=== PATIENT | male | born 1970 | race Caucasian/White ===

== ENCOUNTER → 2017-11-24 15:34 | Outpatient (CLI) | payer BC, SELFPAY ==
--- NOTE | 2017-11-24 15:44 | XR_ITS ---
XR chest 2V INDICATION: Persistent cough COMPARISON: None FINDINGS: The cardiovascular structures are unremarkable. No mediastinal shift or hilar mass is evident. The lungs are well expanded and clear bilaterally. The costophrenic sulci are sharp. No significant bony anomalies are apparent. IMPRESSION: Negative chest.
== END ==
PROVIDERS: PCP Internal Medicine Adolescent Medicine; Visit Provider Internal Medicine Adolescent Medicine
DX: R05 Cough (principal)
CPT/HCPCS: 71046

== ENCOUNTER → 2017-11-27 07:03 | Outpatient (CLI) | payer BC, SELFPAY ==
[2017-11-27 14:02] LABS: Alanine Aminotransferase 23 U/L (12-78); Albumin Level 3.5 gm/dL (3.4-5.0); Albumin/Globulin Ratio 1.1 (1.1-1.8); Alkaline Phosphatase 141 U/L (46-116); Anion Gap 13.4 mEq/L (5-15); Aspartate Amino Transferase 11 U/L (15-37); Bilirubin,Total 0.2 mg/dL (0.2-1.0); Blood Urea Nitrogen 12 mg/dL (7-18); Calcium 8.6 mg/dL (8.5-10.1); Carbon Dioxide 27 mmol/L (21.0-32.0); Chloride 106 mmol/L (98-107); Chol/HDL Ratio 9.5 (1-3.5); Cholesterol 227 mg/dL (140-200); Creatinine,Serum 0.78 mg/dL (0.70-1.30); Estimated Glomerular Filt Rate 106 ml/min (>60); GFR (African American) 128 ML/MIN (>60); Globulin 3.2 gm/dl (1.3-3.2); Glucose 101 mg/dL (74-106); HDL Cholesterol 24 mg/dL (27-67); LDL Cholesterol 164 mg/dL (0-130); Potassium 4.4 mmoL/L (3.5-5.1); Sodium 142 mmol/L (136-145); Total Protein,Serum 6.7 gm/dL (6.4-8.2); Triglycerides 193 mg/dL (30-200); VLDL Cholesterol 39 mg/dL (0-40)
== END ==
PROVIDERS: Visit Provider Nurse Practitioner Family
DX: Z00.00 Encounter for general adult medical examination without abnormal findings (principal)
CPT/HCPCS: 36415; 80053; 80061

== ENCOUNTER 2017-12-12 09:49 | Day surgery (SDC) | payer BC, SELFPAY ==
[2017-12-11 10:32] VITALS: BMI 70.7
[2017-12-12] VITALS (13 sets, daily range): BP systolic 95–119; BP diastolic 60–73; PULSE 60–68; RESP 12–20; TEMP 36.2–36.7; O2SAT 94–99
--- NOTE | 2017-12-12 11:33 | HMH.SCOPE ---
- Procedure: Date: 12/12/17 Procedure Performed:: Total colonoscopy to terminal ileum with biopsies and polypectomy Indications:: Patient is a 47-year-old smoker. He was undergoing routine evaluation for life insurance policy and blood work included CEA level which was elevated. He was therefore referred for consultation for colonoscopy to the etiology. Performing Provider:: Dieudonne Lei MD Referring Provider:: Zack Bartholomew MD Sedation:: Versed 11 million times, fentanyl 200 mcg. Procedure:: After adequate intravenous sedation variable stiffness Olympus colonoscope was inserted via the anus and advanced to the cecum with minimal difficulty. Valve and appendiceal orifice were clearly identified. Colonoscope was advanced into the terminal ileum. There are a couple punctate ulcerations within the terminal ileum and biopsies were obtained. Colonoscope was withdrawn through the colon with careful surveillance. He had some slightly atypical appearing mucosa and biopsies were obtained throughout rule out microscopic colitis. There were some hyperplastic appearing polyps within the rectum and several of these were removed using cold biopsy forceps. Colonoscope was withdrawn. Findings:: Hyperplastic rectal polyps Punctate ulceration in the terminal ileum Recommendations:: No colonic source for elevated CEA. Follow-up for results of biopsies. If rectal polyps are hyperplastic should not require repeat colonoscopy for at least 5 years. Complications:: None Estimated blood obtained (mL): 1
== END 2017-12-12 12:04 | disposition home or self-care (01) ==
LOC: OUTP 09:50
PROVIDERS: Family Provider Internal Medicine Adolescent Medicine; PCP Internal Medicine Adolescent Medicine; Visit Provider Surgery
PROC: 0DJD8ZZ Inspection of Lower Intestinal Tract, Via Natural or Artificial Opening Endoscopic (ICD-10-PCS; CPT 45380; principal; 2017-12-12 10:30)
DX: Z12.11 Encounter for screening for malignant neoplasm of colon (principal); Z02.89 Encounter for other administrative examinations; K63.5 Polyp of colon; K63.3 Ulcer of intestine
CPT/HCPCS: 45380; 99152; 99153

== ENCOUNTER → 2018-12-11 07:18 | Outpatient (CLI) | payer BC, SELFPAY ==
[2018-12-11 13:36] LABS: Basophils # 0.1 K/mm3 (0-0.2); Basophils % 0.6 % (0.1-2.0); Eosinophils # 0.3 K/mm3 (0.0-0.4); Eosinophils % 2.2 % (0.1-12.0); Hematocrit 45.3 % (42.0-52.0); Hemoglobin 14.7 g/dL (14.1-18.0); Lymphocytes # 4.3 K/mm3 (0.7-4.5); Lymphocytes % 35.9 % (10-50); Mean Corpuscular HGB Conc 32.4 g/dL (31.8-35.4); Mean Corpuscular Hemoglobin 29.5 pg (27.0-31.2); Mean Corpuscular Volume 91.1 fl (80-94); Monocytes # 0.7 K/mm3 (0.1-1.0); Monocytes % 5.5 % (1.7-9.3); Neutrophils # 6.8 K/mm3 (1.8-7.8); Neutrophils % 55.7 % (37.0-80.0); Platelet Count 330 K/mm3 (142-424); Red Blood Count 4.97 M/mm3 (4.60-6.20); Red Cell Distribution Width 13.9 % (11.5-17.5); White Blood Count 12.1 K/mm3 (4.8-10.8)
[2018-12-11 13:48] LABS: Alanine Aminotransferase 33 U/L (12-78); Albumin Level 3.6 gm/dL (3.4-5.0); Albumin/Globulin Ratio 1.2 (1.1-1.8); Alkaline Phosphatase 138 U/L (46-116); Aspartate Amino Transferase 14 U/L (15-37); Bilirubin,Total 0.3 mg/dL (0.2-1.0); Blood Urea Nitrogen 10 mg/dL (7-18); Calcium 8.8 mg/dL (8.5-10.1); Carbon Dioxide 26 mmol/L (21.0-32.0); Chloride 107 mmol/L (98-107); Chol/HDL Ratio 5.4 (1-3.5); Cholesterol 168 mg/dL (140-200); Creatinine,Serum 0.88 mg/dL (0.70-1.30); Estimated Glomerular Filt Rate 92 ml/min (>60); GFR (African American) 111 ML/MIN (>60); Globulin 3.1 gm/dl (1.3-3.2); Glucose 104 mg/dL (74-106); HDL Cholesterol 31 mg/dL (27-67); LDL Cholesterol 114 mg/dL (0-130); Sodium 144 mmol/L (136-145); Total Protein,Serum 6.7 gm/dL (6.4-8.2); Triglycerides 116 mg/dL (30-200); VLDL Cholesterol 23 mg/dL (0-40)
== END ==
PROVIDERS: PCP Internal Medicine Adolescent Medicine; Visit Provider Emergency Medicine
DX: R00.1 Bradycardia, unspecified (principal); R06.02 Shortness of breath; R06.83 Snoring
CPT/HCPCS: 36415; 80053; 80061; 83036; 85025

== ENCOUNTER → 2019-12-24 12:58 | Outpatient (CLI) | payer BC, SELFPAY ==
--- NOTE | 2019-12-24 13:01 | XR_ITS ---
PROCEDURE: XR CHEST CHP 1V CLINICAL HISTORY: COUGH COMPARISON: CXR2V XR chest 2V from 11/24/2017 FINDINGS: The cardiomediastinal silhouette and pulmonary vascularity are within normal limits. There is patchy diffuse bilateral alveolar opacification with some sparing of the lung bases.. No effusions. No acute bony abnormalities. IMPRESSION: Mild diffuse bilateral airspace disease consistent with pneumonia which could be either viral or bacterial. Dictated by: Michele Castaneda MD 12/24/2019 13:34 Electronically signed by Michele Castaneda MD in [place] 12/24/2019 13:35
[2019-12-24 13:27] LABS: Adenovirus,PCR Not Detected (NotDetected); Bordetella Pertussis Not Detected (NotDetected); Chlamydophila Pneumoniae, PCR Not Detected (NotDetected); Coronavirus 229E Not Detected (NotDetected); Coronavirus NL63 Not Detected (NotDetected); Coronavirus OC43 Not Detected (NotDetected); Coronovirus HKU1,PCR Not Detected (NotDetected); Human Metapneumovirus Not Detected (NotDetected); Influenza A, PCR Not Detected (NotDetected); Influenza AH1, 2009 Not Detected (NotDetected); Influenza AH1, PCR Not Detected (NotDetected); Influenza AH3,PCR Not Detected (NotDetected); Influenza B, PCR Not Detected (NotDetected); Mycoplasma Pneumoniae, PCR Not Detected (NotDetected); Parainfluenza 1, PCR Not Detected (NotDetected); Parainfluenza 2, PCR Not Detected (NotDetected); Parainfluenza 3, PCR Not Detected (NotDetected); Parainfluenza 4, PCR Not Detected (NotDetected); Respiratory Syncytial Virus Not Detected (NotDetected); Rhinovirus/Enterovirus Not Detected (NotDetected)
[2019-12-24 13:38] LABS: Basophils # 0.1 K/mm3 (0-0.2); Basophils % 0.5 % (0.1-2.0); Eosinophils # 0.4 K/mm3 (0.0-0.4); Eosinophils % 2.7 % (0.1-12.0); Hematocrit 40.4 % (42.0-52.0); Lymphocytes # 3.6 K/mm3 (0.7-4.5); Lymphocytes % 27.9 % (10-50); Mean Corpuscular HGB Conc 32.2 g/dL (31.8-35.4); Mean Corpuscular Hemoglobin 28.1 pg (27.0-31.2); Mean Corpuscular Volume 87.1 fl (80-94); Mean Platelet Volume 7.3 fl (7.4-10.4); Monocytes # 0.5 K/mm3 (0.1-1.0); Monocytes % 4.2 % (1.7-9.3); Neutrophils # 8.4 K/mm3 (1.8-7.8); Neutrophils % 64.8 % (37.0-80.0); Platelet Count 514 K/mm3 (142-424); Red Blood Count 4.64 M/mm3 (4.60-6.20); Red Cell Distribution Width 13.4 % (11.5-17.5); White Blood Count 12.9 K/mm3 (4.8-10.8)
[2019-12-24 13:55] LABS: Alanine Aminotransferase 28 U/L (12-78); Albumin Level 4.2 g/dl (3.5-5.0); Albumin/Globulin Ratio 1.2 (1.1-1.8); Alkaline Phosphatase 109 U/L (38-126); Anion Gap 12.7 mEq/L (5-15); Aspartate Amino Transferase 32 U/L (17-59); Blood Urea Nitrogen 12 mg/dl (9-20); Calcium 9.5 mg/dl (8.4-10.2); Carbon Dioxide 28 mmol/L (22.0-30.0); Chloride 102 mmol/L (98-107); Estimated Glomerular Filt Rate 119 ml/min (>60); GFR (African American) 144 ML/MIN (>60); Globulin 3.4 g/dL (1.3-3.2); Glucose 111 mg/dl (74-100); Potassium 3.7 mmoL/L (3.5-5.1); Sodium 139 mmol/L (136-145); Total Protein,Serum 7.6 g/dl (6.3-8.2)
[2019-12-24 13:56] LABS: Bilirubin,Total 0.1 mg/dl (0.2-1.3)
[2019-12-26 09:00] LABS: Covid-19 Nasal PCR Sendout Lex NOT DETECTED
--- NOTE | 2019-12-26 11:27 | PC.NURSE ---
0900-pt and provider notified of negative COVID 19 results.
== END ==
PROVIDERS: Visit Provider Internal Medicine Adolescent Medicine
DX: R05 Cough (principal); R53.83 Other fatigue; R53.81 Other malaise
CPT/HCPCS: 36415; 71010; 80053; 85025; 87486; 87581; 87633; 87798

== ENCOUNTER → 2020-01-03 12:43 | Outpatient (CLI) | payer BC, SELFPAY ==
--- NOTE | 2020-01-03 12:54 | CT_ITS ---
PROCEDURE: CT CHEST WO CON CLINICAL INDICATION: PNEUMONIA Cough and shortness COMPARISON: CXR2V XR chest 2V from 11/24/2017 XR CHEST CHP 1V from 12/24/2019 TECHNIQUE: Axial images obtained with sagittal and coronal reformats. All CT scans at the facility use one or more dose reduction, viz: automated exposure control, ma/kV adjustment per patient size (including targeted exams where dose is matched to indication, i.e. head), or iterative reconstruction technique. FINDINGS: HEART AND MEDIASTINAL STRUCTURES: Scattered small nodes are present in the mediastinum. Partially calcified nodes are present as well. There are coronary artery calcifications. No mediastinal or hilar mass. LUNGS AND PLEURAL SPACES: There are numerous in diffuse bilateral reticulonodular opacities some of which are coalescent in the right upper lobe measuring up to 10 mm. Summary slight. These are present in both upper and lower lobes however, there is upper lobe predominance. The pattern of the nodular distribution is random. No pleural nodules are evident. There are a few small cavitating nodules. No pleural effusions apparent. BONY STRUCTURES: No acute finding UPPER ABDOMEN: Small gallstones are noted ADDITIONAL FINDINGS: No other significant abnormalities. IMPRESSION: 1. Diffuse ill-defined reticular nodular opacities with upper lobe predominance as described above random in distribution. Differential diagnosis would include infection such as bacterial or fungal as well as miliary tuberculosis, miliary fungal infection. Hematogenous spread of metastasis is also consideration. Sarcoidosis or Langerhans cell histiocytosis could also cause this appearance. Pulmonary consult suggested. 2. Cholelithiasis Dictated by: Michele Castaneda MD 01/03/2020 17:38 Electronically signed by Michele Castaneda MD in [place] 01/03/2020 17:38
== END ==
PROVIDERS: PCP Internal Medicine Adolescent Medicine; Visit Provider Internal Medicine Adolescent Medicine
DX: J18.9 Pneumonia, unspecified organism (principal)
CPT/HCPCS: 71250; 94060; 94726; 94729

== ENCOUNTER → 2020-05-01 08:29 | Outpatient (CLI) | payer BC, SELFPAY ==
--- NOTE | 2020-05-01 08:34 | CA_ITS ---
APPROVED REPORT EXAM: Comprehensive 2D, Doppler, and color-flow Echocardiogram Career Development Associate: Theresa Enamorado RT(R) Ht: 5 ft 11 in Wt: 220lbs BSA: 2.20 BP: 140/80 mmHg Indications: SOA SMOKER 2D Dimensions LVOT 1.77 cm (M/F) 1.5-2.5 M-Mode Dimensions RVDd 2.17 cm (0.9-2.6) LVDd 5.83 cm (3.5-5.7) LVDs 4.10 cm (3.5-5.7) IVSd 0.76 cm (0.6-1.1) PWd 0.97 cm (0.6-1.1) EF (Teich) 56.00% FS 29.70% EDV (Teich) 168.50 mL ESV (Teich) 74.20 mL LV Diastology E/A Ratio 1.45 Mitral Valve MV A Velocity 51.00 (40-130 cm/s) Left Ventricle Left atrium is normal size, left ventricle is normal size, there is no concentric left ventricular hypertrophy, visually estimated ejection fraction of 55% with no regional wall motion abnormality. Right Ventricle Right atrium and right ventricle are normal size and contractility. Aortic Valve Aortic valve is minimally thickened and fibrosed. There is no aortic stenosis or aortic insufficiency. Mitral Valve Mitral valve is grossly normal, there is mild mitral regurgitation. Tricuspid Valve Tricuspid valve is grossly normal, there is mild tricuspid regurgitation. Tricuspid regurgitation jet velocity is inadequate for calculation of the right ventricular systolic pressure. Pulmonic Valve Pulmonic valve is poorly visualized. Great Vessels Aortic root is normal size. Pericardium No significant pericardial effusion noted. Conclusion 1. Normal left ventricular size, preserved left ventricular systolic function, visually estimated ejection fraction 55% with no regional wall motion abnormality, diastolic parameters are within normal range. 2. Mild mitral and tricuspid regurgitation. 3. No significant pericardial effusion noted. Electronically signed by : Shankar Pina, 05/01/2020 14:00:34
== END ==
PROVIDERS: PCP Internal Medicine Adolescent Medicine; Visit Provider Internal Medicine Adolescent Medicine
DX: R06.02 Shortness of breath (principal)
CPT/HCPCS: 93306

== ENCOUNTER → 2021-01-19 18:33 | Outpatient (CLI) | payer BC, SELFPAY ==
[2021-01-19 19:01] LABS: Basophils # 0.1 K/mm3 (0-0.2); Basophils % 0.5 % (0.1-2.0); Eosinophils # 0.3 K/mm3 (0.0-0.4); Hematocrit 43.4 % (42.0-52.0); Hemoglobin 14.5 g/dL (14.1-18.0); Lymphocytes # 4.9 K/mm3 (0.7-4.5); Lymphocytes % 34.4 % (10-50); Mean Corpuscular HGB Conc 33.4 g/dL (31.8-35.4); Mean Corpuscular Hemoglobin 29.9 pg (27.0-31.2); Mean Corpuscular Volume 89.8 fl (80-94); Mean Platelet Volume 8.7 fl (7.4-10.4); Monocytes # 0.8 K/mm3 (0.1-1.0); Monocytes % 5.3 % (1.7-9.3); Neutrophils # 8.3 K/mm3 (1.8-7.8); Neutrophils % 57.8 % (37.0-80.0); Platelet Count 372 K/mm3 (142-424); Red Blood Count 4.83 M/mm3 (4.60-6.20); Red Cell Distribution Width 14.4 % (11.5-17.5); White Blood Count 14.3 K/mm3 (4.8-10.8)
[2021-01-19 19:05] LABS: Alanine Aminotransferase 21 U/L (12-78); Albumin Level 4.5 g/dl (3.5-5.0); Albumin/Globulin Ratio 1.8 (1.1-1.8); Alkaline Phosphatase 135 U/L (38-126); Anion Gap 12.2 mEq/L (5-15); Aspartate Amino Transferase 29 U/L (17-59); Bilirubin,Total 0.2 mg/dl (0.2-1.3); Blood Urea Nitrogen 13 mg/dl (9-20); Calcium 9.5 mg/dl (8.4-10.2); Carbon Dioxide 26 mmol/L (22.0-30.0); Chloride 106 mmol/L (98-107); Estimated Glomerular Filt Rate 118 ml/min (>60); GFR (African American) 143 ML/MIN (>60); Globulin 2.5 g/dL (1.3-3.2); Glucose 95 mg/dl (74-100); Potassium 4.2 mmoL/L (3.5-5.1); Sodium 140 mmol/L (136-145)
[2021-01-19 19:23] LABS: Hemoglobin A1C 5.8 % (4.0-6.0)
[2021-01-19 19:36] LABS: Prostate Specific Ag Screen 3.1 ng/ml (0.0-4.0)
[2021-01-19 19:54] LABS: Vitamin B12 576 pg/mL (239-931)
[2021-01-19 20:30] LABS: 25-OH Vitamin D, Total 44.5 ng/mL (30-100)
[2021-01-19 20:36] LABS: Free Thyroxine Index 2.5 ug/dL (5.93-13.13); T4 (Thyroxine) 7.7 ug/dl (5.53-11.0); Triiodothryronine (T3) Uptake 32 % (23.5-40.5)
[2021-01-19 20:50] LABS: Thyroid Stimulating Hormone 1.17 uIU/mL (0.465-4.68)
[2021-01-21 16:12] LABS: IgG, Subclass 1 496 mg/dL (248-810); IgG, Subclass 2 173 mg/dL (130-555); IgG, Subclass 3 53 mg/dL (15-102)
[2021-01-21 20:56] LABS: IgG, Subclass 4 55 mg/dL (2-96)
== END ==
PROVIDERS: Visit Provider Internal Medicine Adolescent Medicine
DX: R35.8 Other polyuria (principal); L29.9 Pruritus, unspecified; Z79.899 Other long term (current) drug therapy; Z12.5 Encounter for screening for malignant neoplasm of prostate
CPT/HCPCS: 80053; 82306; 82607; 82787; 83036; 84436; 84443; 84479; 85025; G0103

== ENCOUNTER 2023-10-02 16:33 | Outpatient (CLI) | payer BC, SELFPAY ==
[2023-10-02 16:46] LABS: Basophils # 0.1 K/mm3 (0-0.2); Basophils % 0.5 % (0.1-2.0); Eosinophils # 0.2 K/mm3 (0.0-0.4); Eosinophils % 1.5 % (0.1-12.0); Hematocrit 47.2 % (42.0-52.0); Hemoglobin 15.8 g/dL (14.1-18.0); Lymphocytes # 3.9 K/mm3 (0.7-4.5); Lymphocytes % 36.7 % (10-50); Mean Corpuscular HGB Conc 33.4 g/dL (31.8-35.4); Mean Corpuscular Hemoglobin 30.9 pg (27.0-31.2); Mean Corpuscular Volume 92.4 fl (80-94); Mean Platelet Volume 9.4 fl (7.4-10.4); Monocytes # 0.7 K/mm3 (0.1-1.0); Monocytes % 6.5 % (1.7-9.3); Neutrophils # 5.9 K/mm3 (1.8-7.8); Neutrophils % 54.8 % (37.0-80.0); Platelet Count 317 K/mm3 (142-424); Red Blood Count 5.11 M/mm3 (4.60-6.20); Red Cell Distribution Width 14.4 % (11.5-17.5); White Blood Count 10.7 K/mm3 (4.8-10.8)
[2023-10-02 17:28] LABS: Alanine Aminotransferase 20 U/L (12-78); Albumin/Globulin Ratio 1.4 (1.1-1.8); Alkaline Phosphatase 140 U/L (38-126); Anion Gap 11.7 mEq/L (5-15); Aspartate Amino Transferase 22 U/L (17-59); Bilirubin,Total 0.4 mg/dl (0.2-1.3); Blood Urea Nitrogen 12 mg/dl (9-20); Calcium 8.8 mg/dl (8.4-10.2); Carbon Dioxide 26 mmol/L (22.0-30.0); Chloride 106 mmol/L (98-107); Chol/HDL Ratio 9.6 (1-3.5); Cholesterol 259 mg/dl (140-200); Estimated Glomerular Filt Rate 117 ml/min (>60); GFR (African American) 142 ML/MIN (>60); Globulin 2.9 g/dL (1.3-3.2); Glucose 98 mg/dl (74-100); HDL Cholesterol 27 mg/dl (40-60); Potassium 4.7 mmoL/L (3.5-5.1); Sodium 139 mmol/L (136-145); Total Protein,Serum 6.9 g/dl (6.3-8.2); Triglycerides 229 mg/dl (30-150); VLDL Cholesterol 46 mg/dL (0-40)
== END 2023-10-02 23:59 ==
LOC: LAB.DROPOF 16:34
PROVIDERS: PCP Family Medicine; Visit Provider Family Medicine
DX: E78.5 Hyperlipidemia, unspecified (principal)
CPT/HCPCS: 80053; 80061; 85025

== ENCOUNTER 2025-05-17 09:34 | Outpatient (CLI) | payer BC, OTHER, SELFPAY ==
--- OUTSIDE RECORDS SUMMARY | 2022-02-17 11:58 | XMS_ITS | Encounter Summary ---
[facility] Address [address] [place] [address] Care Team Providers Care Supervisor Pipe Manufacture Name Role Phone Zack Bartholomew MD Primary Care Provider [phone] Encounter Details Date Type Department Care Team (Late st Contact Info) Description 02/17/2022 11:58 AM EDT Hospital Encounter [facility] [address] [place] [address] [phone] Social History Tobacco Use Types Packs/Day Years Used Date Smoking Tobacco: Every Day Cigarettes 1 35 Smokeless Tobacco: Never Alcohol Use Standard Drinks/Week Comments Never 0 (1 standard drink = 0.6 oz pur e alcohol) AUDIT-C Answer Date Recorded Q1: How often do you have a drink containing alc ohol? Never 08/14/2020 Average Number of Drinks Not on file 020 Frequency of Binge Drinking Not on file 12/2019 Sex and Gender Information Value Date Recorded Sex Assigned at Not on file Legal Sex Male 4:19 PM EST Gender Identity Not on file Sexual Orientation Not on file Occupation Industry Job Start Date Job End Date self employed Not on file Not on file Not on file documented as of this encounter Plan of Treatment Not on file documented as of this encounter Procedures Procedure Name Priority Date/Time Associated Diagnosis Comments XR CHEST PA AND LATERAL Routine 02/17/2022 11:58 AM EDT Adult [facility] (pulmonary Langerhans cell histiocytosis) documented in this encounter Results * XR Chest PA & Lateral (02/17/2022 11:58 AM EDT) Anatomical Region Laterality Modality Body, Chest N/A Radiographic Kierra ging Narrative 02/17/2022 12:19 PM EDT PA and lateral chest x-rays obtained Cardiac silhouette is within normal limits of size CT ratio is 13 x 31 Prominent interstitial pattern noted throughout both lung cantor without consolidation or effusions Overall, probably improved and less nodular than prior chest x-ray from March 17, 2020 Frank Mark MD IMG DIAGNOSTIC IMAGING ORDERABLES Final Result documented in this encounter Visit Diagnoses Not on filedocumented in this encounter Care Teams Supervisor Pipe Manufacture Relationship Specialty Start Date End Date Zack Bartholomew MD [facility] [address] [phone] PCP - General Adolescent Medicine 08/20/16 documented as of this encounter
--- OUTSIDE RECORDS SUMMARY | 2024-12-14 17:30 | XMS_ITS ---
Author Organization [facility] Address [address] [place] [address] [place] [address] Care Team Providers Care Corridor Redevelopment Manager Name Role Phone Zack Bartholomew Primary Care Provider Migration, Provider Unavailable Unavailable [facility]AS[facility]ISIT [facility] Encounter Medications Medication SIG (Take, Route, Frequency, Duration) Notes Start Date End Date Status LOTRISONE 0.05%-1% 1 ARIEL APPLIED TOPICALLY 2 TIMES A DAY; Duration: 14 DAY(S) *Please review for potential replacement for e-prescription and drug interaction check* Active Antivert 50 MG 1 TAB(S) ORALLY 3 TIMES A DAY NEEDED; Duration: 30 DAYS *Please review and pick correct strength-formulatio n from [facility] options. If intended option is not shown, discontinue and re-order from Quick Search* 11/22/2022 Active SPIRIVA RESPIMAT 60 ACT 2.5 MCG/INH 2 PUFF(S) INHALED ONCE A DAY *Please review for potential replacement for e-prescription and drug interaction check* 09/21/2021 Active Rosuvastatin Calcium 10 MG 1 tab(s) orally once a day; Duration: 90 day(s) 09/13/2022 Active PROAIR HFA CFC FREE 90 MCG/INH 2 PUFF(S) INHALED 4 TIMES A DAY PRN WHEEZING; Duration: 30 DAY(S) *Please review for potential replacement for e-prescription and drug interaction check* 09/14/2021 Active Breo Ellipta 100 MCG-25 MCG/INH 1 PUFF(S) INHALED ONCE A DAY; Duration: 30 DAY(S) *Please review and pick correct strength-formulatio n from Medispan options. If intended option is not shown, discontinue and re-order from Quick Search* 09/14/2021 Active Tamsulosin HCl 0.4 MG 1 cap(s) orally once a day; Duration: 90 days Active Encounters Encounter Location Date Provider Diagnosis [facility] [address] [place], [place] [address] 12/14/2024 Provider Migration Plan Of Treatment Medication Medication Name Sig Start Date Stop Date Notes LOTRISONE 0.05%-1% 1 ARIEL APPLIED TOPICALLY 2 TIMES A DAY; Duration: 14 DAY(S) *Please review for potential replacement for e-prescription and drug interaction check* Antivert 50 MG 1 TAB(S) ORALLY 3 TIMES A DAY NEEDED; Duration: 30 DAYS 11/22/2022 *Please review and pick correct strength-formulation from [employer] options. If intended option is not shown, discontinue and re-order from Quick Search* Rosuvastatin Calcium 10 MG 1 tab(s) orally once a day; Duration: 90 day(s) 09/13/2022 Tamsulosin HCl 0.4 MG 1 cap(s) orally on ce a day; Duration: 90 days Progress Notes * Mao MAURICIO DDOB:[birth year] (54 yo M)Acc No.[id number]:12/14/2024 Patient: Ambika MINDYLupillo VARGASnikait Lopez Provider: Christie cobos Migration :1970 A ge:54 Y S ex:Male Date:12/14/2024 Address:[address] [place] [address], [phone] Pcp:Zack Bartholomew Subjective: * Chief Complaints: * [facility] . [facility] * Medical History: * Medications: T aking PROAIR HFA CFC FREE 90 MCG/INH AEROSOL WITH ADAPTER 2 PUFF(S) INHALED 4 TIMES A DAY PRN WHEEZING , Notes to Pharmacist: *Please review for potential replacement for e-prescription and drug interaction check*, Taking Breo Ellipta 100 MCG-25 MCG/INH POWDER 1 PUFF(S) INHALED ONCE A DAY , Notes to Pharmacist: *Please review and pick correct strength-formulation from Medispan options. If intended option is not shown, discontinue and re-order from Quick Search*, Taking SPIRIVA RESPIMAT 60 ACT 2.5 MCG/INH AEROSOL 2 PUFF(S) INHALED ONCE A DAY , Notes to Pharmacist: *Please review for potential replacement for e-prescription and drug interaction check* Objective: * Vitals: Assessment: Plan: * Treatment: * * Electronic signature of Jeny perry Migration on 05/17/2025 at 09:37 AM EDT Sign off status: Pending * Provider: Christie cobos Migration Date: 0 12/14/2024 Generated for Jina newman/Urvashi/Virgilioitting on: 0 05/17/2025 09:37 AM EDT
--- NOTE | 2025-05-17 09:36 | XR_ITS ---
PROCEDURE INFORMATION: Exam: XR Cervical Spine Exam date and time: 05/17/2025 9:38 AM Age: 54 years old Clinical indication: Neck pain TECHNIQUE: Imaging protocol: Radiologic exam of the cervical spine. Views: 6 or more views. COMPARISON: CT CHEST WO CON 01/03/2020 2:06 PM FINDINGS: Bones/joints: No acute fracture of the cervical spine. No subluxation or dislocation of the cervical spine. Neural foraminal narrowing C3/C4 bilaterally. Intervertebral disc space narrowing C5 through C7 may represent degenerative disc disease.. Anterior osteophyte formation C5 through C7. Posterior osteophyte formation C5 through C7. Degenerative changes in the facets at multiple levels. Degenerative changes at C1/C2 Alignment does not vary significantly with active flexion or extension Soft tissues: Unremarkable. IMPRESSION: 1. No acute fracture of the cervical spine. 2. No subluxation or dislocation of the cervical spine. 3. Intervertebral disc space narrowing C5 through C7 may represent degenerative disc disease..
--- OUTSIDE RECORDS SUMMARY | 2025-05-17 09:37 | XMS_ITS | Encounter Summary ---
Author Organization [facility] ([place], [place], [place], [place]) Address [address] [place] [address] Care Team Providers Care Display Specialist Name Role Phone Unavailable Primary Care Provider Unavailabl e Encounter Details Date Type Department Care Team (Late st Contact Info) Description 01/28/2019 Transcribed Document [facility] [place] [address] ProviderDustin [place] [address] Social History Tobacco Use Types Packs/Day Years Used Date Smoking Tobacco: Never Assessed Sex and Gender Information Value Date Recorded Sex Assigned at Not on file Legal Sex Male 6:34 PM CDT Gender Identity Not on file Sexual Orientation Not on file documented as of this encounter Miscellaneous Notes * Cerner Conversion Note - Dustin ProviderMD - 01/28/2019 10:39 AM CDT Pre Procedure Adult Entered On: 01/28/2019 10:45 EDT Performed On: 01/28/2019 10:39 EDT by VERA FLOYD RN Height and Weight, Clinical Dosing Height Source : Stated Height Entry Format : Jones Height, Feet : 5 ft(Converted to: 152 cm, 60 Inch) Height, Inches : 11 Inch(Converted to: 0 ft 11 Inch, 27.94 cm) Clinical Height : 180.34 cm Weight Source : Standing scale Weight Entry Format : Jones Clinical Dosing Weight : 100.45 kg Weight, Pounds : 221 lb Body Surface Area (BSA) : 2.2 m2 Body Mass Index : 30.9 kg/m2 (HI) Cameron Body Weight : 74 kg VERA FLOYD, RN - 01/28/2019 10:39 EDT Health Histories Smoking Status : Smoker, current status unknown Smokeless Tobacco Status : Never Desires Tobacco Cessation Medication : Yes VERA FLOYD RN - 01/28/2019 10:39 EDT Social History (As Of: 01/28/2019 10:45:53 EDT) Tobacco: Years of Use: 38. Packs/Tins Daily: 2. (Last Updated: 01/28/2019 10:40:32 EDT by VERA FLOYD, RN) Alcohol: Alcohol Use History No. (Last Updated: 01/28/2019 10:40:48 EDT by VERA FLOYD, RN) Substance Abuse: Drug Use Hx: No. (Last Updated: 01/28/2019 10:40:51 EDT by VERA FLOYD, RN) Infectious Disease History Infectious Disease History : Chicken pox/Shingles Fever/Chills Last 48 Hours : No Travel To Regions with Travel Advisories : No Travel Outside [place] Within Last 30 Days : No Contact With Traveler to Advisory Region : No Tuberculosis Symptoms : None VERA FLOYD RN - 01/28/2019 10:39 EDT Anesthesia/Transfusion History Family History of Anesthesia Reaction : No prior transfusion(s) Blood Transfusion Acceptable to Patient : Yes Transfusion History : Prior anesthesia without reaction Family History of Anesthesia Reaction : None VERA FLOYD RN - 01/28/2019 10:39 EDT Functional Assessment Living Situation : Home Patient Lives With : Dependent Child/Children, Spouse Current Home Treatments : None VERA FLOYD RN - 01/28/2019 10:39 EDT Psychosocial History Currently in Unsafe Situation : No Tried to Harm Yourself in the Past? : No Thoughts of Harming/Killing Yourself : No VERA FLOYD RN - 01/28/2019 10:39 EDT Advance Directive Patient has Advance Directive *Q : Yes, Advance Directive on file Advance Directive Type : Living will Copy Advance Directive Verified/on Chart : No VERA FLOYD RN - 01/28/2019 10:39 EDT Teaching/Learning Assessment Barriers To Learning : None evident Individuals Taught : Patient, Spouse, Child Readiness to Learn : Cooperative Baseline Knowledge of Topic : Limited Readiness to Learn : Demonstration, Explanation Learning Style Preferences Patient : None Learning Style Preferences Family : None VERA FLOYD RN - 01/28/2019 10:39 EDT Education Topics, Periop Preadmission Perioperative Education Grid Arrival Time/Place : Verbalizes understanding, Returns demonstration CAUTI : Verbalizes understanding, Returns demonstration Central Lines : Verbalizes understanding, Returns demonstration CHG Preoperative Bathing/Cloths : Verbalizes understanding, Returns demonstration Falls : Verbalizes understanding, Returns demonstration Incentive Spirometry : Verbalizes understanding, Returns demonstration Infection Control : Verbalizes understanding, Returns demonstration IV's : Verbalizes understanding, Returns demonstration NPO Status/Directions : Verbalizes understanding, Returns demonstration Pain Management : Verbalizes understanding, Returns demonstration Postoperative Care Preparations : Verbalizes understanding, Returns demonstration Preprocedure Preparations : Verbalizes understanding, Returns demonstration Preprocedure Tests/Labs : Verbalizes understanding, Returns demonstration Remove Body Piercings : Verbalizes understanding, Returns demonstration Responsible Adult : Verbalizes understanding, Returns demonstration Take/Hold Medications Pre-Procedure : Verbalizes understanding, Returns demonstration Other : Verbalizes understanding, Returns demonstration VERA FLOYD RN - 01/28/2019 10:39 EDT General Info Arrived From : Home Mode of Arrival on Unit : Ambulatory Legal Guardian : Daughter, Spouse Support Person/Pt Rep Name : Daniela Jaimes, spouse Support Person/Pt Rep Contact Information : [phone] Want Family/Rep/Phys Notified of Admit : No Emergency Contact #1 : see above Emergency Contact #1 Phone Number : na Emergency Contact #1 Relationship : na Emergency Contact #2 : none Emergency Contact #2 Phone Number : na Emergency Contact #2 Relationship : na Primary Language : Senegalese Communication Barrier : None VERA FLOYD RN - 01/28/2019 10:39 EDT Vital Measurements Temperature Source : Temporal artery scanning Temperature Mode : Fahrenheit Temperature, Fahrenheit : 97.6 Deg F Clinical Temperature, C : 36.4 Deg C Peripheral Pulse Rate : 62 bpm Systolic Blood Pressure : 118 mmHg Diastolic Blood Pressure : 63 mmHg Oxygen Saturation : 97 % Oxygen Therapy Mode : Room air VERA FLOYD RN - 01/28/2019 10:39 EDT Sleep Apnea Risk Assmt Hx of Obstructive Sleep Apnea Diagnosis : No Snore Loudly : No Tired, Fatigued, or Sleepy During Day : No Observed Stopping Breathing During Sleep : No Have/Are Being Treated for Hypertension : Yes BMI Greater Than 35 kg/m2 : No Age over 50 Years Old : Yes Neck Circumference Greater Than 40 cm : No Gender Male : Yes STOP-BANG Sleep Apnea Risk Level Score : 3 VERA FLOYD RN - 01/28/2019 10:39 EDT Epi Scale Epi Sensory Perception : No impairment Epi Moisture : Rarely moist Epi Activity : Walks occasionally Epi Mobility : No limitation Epi Nutrition : Adequate Epi Friction and Shear : No apparent problem Epi Score : 21 VERA FLOYD RN - 01/28/2019 10:39 EDT Pain Assessment Pain Assessment : Initial assessment Pain Scale Used : 0-10 Scale VERA FLOYD RN - 01/28/2019 10:39 EDT Fall Risk Scales ABCs Fall Injury Risk Identification : None HUITRON Hx Falls Immediate/Within 3 Months : No [place]ron Secondary Diagnosis : No HUITRON Use of Ambulatory Aid : None HUITRON IV Therapy or IV Access : Yes [place] Gait/Transferring : Normal, bedrest, immobile [place]ron Mental Status : Oriented to own ability [place] Fall Risk Score : 20 HUITRON Fall Scale Risk Level : 0-24 Low Risk [place] Fall Interventions : Adequate lighting, Bed in low position, Call device within reach, Non-slip footwear, Personal items within reach, Room free of clutter/spills, Wheels locked, Wires/Cords secured VERA FLOYD RN - 01/28/2019 10:39 EDT Valuables and Belongings Valuables and Belongings : Clothing, Personal items, No comfort items, No jewelry, No personal devices, No assistive devices, No respiratory devices, No medications Clothing : Common streetwear Clothing Disposition : Bedside Personal Items : Cell phone, Wallet Personal Items Disposition : Bedside, With family, Declines to send to security/safe Belongings Sent Home With : spouse Belongings Disposition Comment : pt denies having any valuables that need locked in hospital safe VERA FLOYD RN - 01/28/2019 10:39 EDT Pain Scale Intensity : 0 VERA FLOYD RN - 01/28/2019 10:39 EDT Image 4 - Images currently included in the form version of this document have not been included in the text rendition version of the form. documented in this encounter Plan of Treatment Not on file documented as of this encounter Visit Diagnoses Not on filedocumented in this encounter
--- OUTSIDE RECORDS SUMMARY | 2025-05-17 09:37 | XMS_ITS | Clinical Summary ---
Author Organization [facility] Address [address] [place] [address] Care Team Providers Care Pilot Fuel Engineer Name Role Phone Zack Bartholomew MD Primary Care Provider [phone] Allergies No known active allergies Medications albuterol sulfate HFA 108 (90 Base) MCG/ACT inhaler Inhale 1 puff Every 6 (Six) Hours As Needed for Shortness of Air. 0 Active rosuvastatin (CRESTOR) 10 MG tablet Take 1 tablet by mouth Daily. 3 Active tamsulosin (FLOMAX) 0.4 MG capsule 24 hr capsule Take 1 capsule by mouth Daily. 3 Active buPROPion SR (Wellbutrin SR) 100 MG 12 hr tabletIndicatio ns:Tobacco abuse Take 1 tablet by mouth 2 (Two) Times a Day. 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) 04/15/[address] (Bilateral nodular and micronodular disease) 01/15/2020 Tobacco abuse 01/15/2020 Mediastinal lymphadenopathy 01/15/2020 Encounters Date Type Department Care Team Description 04/29/2025 Telephone [facility] DE[facility] [id number] [place] [address] Navigator, Lung from Last 3 Months Immunizations Immunization Administration Dates Next Due COVID-19 (MODERNA) 1st,2nd,3rd Dose Monovalent 0 12/10/2020,11/12/2020 Flu Vaccine Quad PF >36MO 06/25/2020 Fluzone Quad >6mos (Multi-dose) 06/25/2020 Family History Medical History Relation Name Comments Hypertension Brother Cancer Father Diabetes Paternal Grandfather Diabetes Paternal Grandmother Hypertension Sister Relation Name Status Comments Brother Alive Father Maternal Grandfather Maternal Grandmother Mother Alive Paternal Grandfather Paternal Grandmother Sister Alive Social History Tobacco Use Types Packs/Day Years Used Date Smoking Tobacco: Every Day Cigarettes 1 35 Smokeless Tobacco: Never Tobacco Cessation:Ready to Q uit: Not Asked; Counseling Given: Not Answered Alcohol Use Standard Drinks/Week Comments Never 0 [...] file Not on file Not on file Last Filed Vital Signs Vital Sign Reading Time Taken Comments Blood Pressure 144/82 08/20/2024 1:19 PM EST Pulse 65 08/20/2024 1:19 PM EST Temperature 35.9 C (96.6 F) 08/20/2024 1:19 PM EST Respiratory Rate 20 11/07/2022 2:56 PM EST Oxygen Saturation 98% 08/20/2024 1:1 9 PM EST room air at rest Inhaled Oxygen Concentration - - Weight 111 kg (244 lb) 08/20/2024 1:19 PM EST Height 180 cm (5' 10.87 ) 08/20/2024 1: 19 PM EST Body Mass Index 34.16 08/20/2024 1:19 PM EST Plan of Treatment Health Maintenance Due Date Last Done Comments LIPID PANEL 1968 Pneumococcal Vaccine 50+ (1 of 2 - PCV) 1987 TDAP/TD VACCINES (1 - Tdap) 1987 COLOGUARD 2013 COLON CANCER SCREENING 5 YEA R SIGMOIDOSCOPY 2013 COLONOSCOPY [address] CANCER SCREENING 2013 CT COLONOGRAPHY 2013 FECAL OCCULT BLOOD TEST 2013 FIT Testing (1 year) 2013 ZOSTER VACCINE (1 of 2) 2018 ANNUAL PHYSICAL 01/14/2020 HEPATITIS C SCREENING 01/14/2020 COVID-19 Vaccine (3 2024-2 6 season) 2025 12/10/2020, 11/12/2020 LUNG CANCER SCREENING 06/01/2025 06/01/2024 , 02/12/2023, 07/29/2022, Additional history exists INFLUENZA VACCINE 06/11/2025 06/25/2020, 06/25/2020 Medical Devices Implanted Type Area Rail Gang Supervisor Device Identifier Shelf Expiration Date Model / Serial / Lot Reload Stplr Endo Arianna Tristaple [employer] [facility] - [id number] Implanted:Qty: 8 on 03/06/2020 by Frank Collins MD at [facility] Implant Left: Lung COVIDIEN [id number] / / Reload Stplr Endo Arianna Tristaple [employer] [facility] - [id number] Implanted:Qty: 2 on 03/06/2020 by Frank Collins MD at [facility] Implant Left: Lung COVIDIEN [id number] / / Procedures Procedure Name Priority Date/Time Associated Diagnosis Comments CT CHEST WO CONTRAST DIAGNOSTIC Routine 06/01/2024 10:17 AM EDT Abnormal chest CT (Bilateral nodular and micronodular disease) from Last 3 Months or Most Recently Relevant to Health Maintenance Results * CT Chest Without Contrast Diagnostic (06/01/2024 10:17 AM EDT) Anatomical Region Laterality Modality Chest N/A Computed Tomogra phy 06/03/2024 10:0 4 AM EDT Impressions 06/03/2024 10:09 AM EDT Impression: Diffuse pulmonary interstitial disease pattern is similar as compared to the prior study. Stable lung nodules. No new abnormality. Electronically Signed: Amisha Castro MD 06/03/2024 10:09 AM EDT Workstation ID: [id number] Narrative 06/03/2024 10:[address] CHEST WO CONTRAST DIAGNOSTIC Date of Exam: 06/01/2024 10:11 AM EDT Indication: lung scan. History of pulmonary Langerhans cell histiocytosis Comparison: 02/12/2023. Technique: Axial CT images were obtained of the chest without contrast administration. Reconstructed coronal and sagittal images were also obtained. Automated exposure control and iterative construction methods were used. Findings: There is a prominent groundglass interstitial pattern of the bilateral lung cantor which appears similar. There are small subcentimeter right upper lobe lung nodules as seen on images numbers 44 and 45 of series 3 which are stable. There are no definite new nodules or masses. There is cholelithiasis without acute cholecystitis. There are no pleural or pericardial effusions. There are coronary calcifications. There are calcified and noncalcified mediastinal nodes which are stable. There are calcified left hilar nodes. There are no enlarged axillary nodes. The trachea and bronchial tree appear patent. Procedure Note Amisha Castro MD - 06/03/2024 CT CHEST WO CONTRAST DIAGNOSTIC Date of Exam: 06/01/2024 10:11 AM EDT Indication: lung scan. History of pulmonary Langerhans cellhistiocytosis Comparison: 02/12/2023. Technique: Axial CT images were obtained of the chest without contrastadministration. Reconstructed coronal and sagittal images were alsoobtained. Automated exposure control and iterative construction methodswere used. Findings: There is a prominent groundglass interstitial pattern of the bilaterallung cantor which appears similar. There are small subcentimeter rightupper lobe lung nodules as seen on images numbers 44 and 45 of series 3which are stable. There are no definite new nodules or masses. There is cholelithiasis without acutecholecystitis. There are no pleural or pericardial effusions. There arecoronary calcifications. There are calcified and noncalcified mediastinalnodes which are stable. There are calcified left hilar nodes. There are no enlarged axillary nodes. The trachea andbronchial tree appear patent. IMPRESSION: Impression: Diffuse pulmonary interstitial disease pattern is similar as compared tothe prior study. Stable lung nodules. No new abnormality. Electronically Signed: Amisha Castro MD 06/03/2024 10:09 AM EDT Workstation ID: [id number] Frank Mark MD IM CT ORDERABLES Final Result from Last 3 Months or Most Recently Relevant to Health Maintenance Insurance [place] [id number] [place] [address] EMPLOYEE Advance Directives Documents on File Type Date Recorded Patient Calker Expl anation LIVING WILL - SCAN 01/22/2020 10:14 AM ANGIE PHI ANDREW, 01/25/2019 POWER OF ROUSTABOUT HEAD - SCAN 01/22/2020 10:14 AM POWER OF ROUSTABOUT HEADPHI, 01/25/2019 * CPR (Attempt to Resuscitate) (Latest Code Status on File) Date Activated Date Inactivated Comments 03/06/2020 11:15 AM 03/08/2020 3:27 PM Question Answer Comments Code Status (Patient has no pulse and is not breathing): CPR (Attempt to Resuscitate) Medical Interventions (Patie nt has pulse or is breathing): Full Care Teams Pilot Fuel Engineer Relationship Specialty Start Date End Date Zack Bartholomew MD [address] [facility] [address] [place] [address] PCP - General Adolescent Medicine 08/20/16
--- OUTSIDE RECORDS SUMMARY | 2025-05-17 09:37 | XMS_ITS | Encounter Summary ---
Author Organization [employer] ([place], [place], [place], [place]) Address [address] [place] [address] Care Team Providers Care Resident Intern Name Role Phone Unavailable Primary Care Provider Unavailabl e Encounter Details Date Type Department Care Team (Late st Contact Info) Description 01/28/2019 Transcribed Document [facility] [place] [facility] Family Medicine [facility] [place] [address] ProviderDustin MD [address] [place] [id number] Social History Tobacco Use Types Packs/Day Years Used Date Smoking Tobacco: Never Assessed Sex and Gender Information Value Date Recorded Sex Assigned at Not on file Legal Sex Male 6:34 PM CDT Gender Identity Not on file Sexual Orientation Not on file documented as of this encounter Miscellaneous Notes * Cerner Conversion Note - Dustin Ortega MD - 01/28/2019 2:23 PM CDT [facility] [place] [address] MAO MAURICIO :1970 Visit Time:01/28/2019 Your Visit Summary Your Care Team Admitting Physician - MARY ANN TILLMAN MD-CAR Attending Physician - MARY ANN TILLMAN MD-CAR Primary Care Physician - SABINE MADISON (REF)CHRISTIANO Referring Physician - MARY ANN TILLMAN MD-CAR Your Diagnosis Abnormal result of other cardiovascular function study, Abnormal result of other cardiovascular function study Discharge Vitals Temperature 36.4 ??C Heart Rate (Monitored) 56 Respiratory Rate 11 Blood Pressure 133/78 What to do next Instructions From Your Care Team Do not drive for the next 24 hours. Refer to post radial cardiac cath info sheet regarding right wrist care. Follow-Up Appointments Follow Up with MARI SHIN When Within 1 month Where: [address] [place] [address] [place] [address]- [facility] (1) Medications What How Much When Instructions Next Dose aspirin 81 Milligram(s) Oral At Bedtime 01-28-2019 atorvastatin (Lipitor) 40 Milligram(s) Oral At Bedtime 01-29-2019 metoprolol (Metoprolol Succinate ER) 25 Milligram(s) Oral At Bedtime 01-28-2019 Take your medications faithfully. Do NOT skip medication. Do NOT stop taking medications without the direction of a physician. Carry a list of your medications with you at all times, and take this medication list with you to your first follow up visit. Report any side effects. Avoid herbal remedies unless discussed with your physician. As part of your treatment plan, your physician may have prescribed a limited course of a controlled substance. This medication may be given to help people with moderate or severe pain or for other medical conditions, but there are risks involved with treatment. Common side effects may include nausea, constipation, drowsiness, sweating, itching, dry mouth, and rash. More serious side effects may include cognitive and motor impairment, like problems with thinking, concentrating, alertness, and movement (e.g. slowed reflexes), and driving and operating heavy machinery can be dangerous. It is important for you to talk to your physician if you have these side effects or questions. These controlled substances can produce physical dependence and be habit-forming if taken for an extended period of time, which means that the body has gotten used to them and may experience withdrawal symptoms if they are abruptly stopped. Withdrawal symptoms can include runny nose, sweating, goose bumps, diarrhea, abdominal cramping, rapid heartbeat, difficulty sleeping, and nervousness. Please dispose of unused and medications per your retail pharmacy guidance. Allergies No Known Allergies Immunizations This Visit No Immunizations Found Education Materials Moderate Conscious Sedation, Adult, Care After These instructions provide you with information about caring for yourself after your procedure. Your health care provider may also give you more specific instructions. Your treatment has been planned according to current medical practices, but problems sometimes occur. Call your health care provider if you have any problems or questions after your procedure. What can I expect after the procedure? After your procedure, it is common: ??? To feel sleepy for several hours. ??? To feel clumsy and have poor balance for several hours. ??? To have poor judgment for several hours. ??? To vomit if you eat too soon. Follow these instructions at home: For at least 24 hours after the procedure: ??? Do not: ? Participate in activities where you could fall or become injured. ? Drive. ? Use heavy machinery. ? Drink alcohol. ? Take sleeping pills or medicines that cause drowsiness. ? Make important decisions or sign legal documents. ? Take care of children on your own. ??? Rest. Eating and drinking ??? Follow the diet recommended by your health care provider. ??? If you vomit: ? Drink water, juice, or soup when you can drink without vomiting. ? Make sure you have little or no nausea before eating solid foods. General instructions ??? Have a responsible adult stay with you until you are awake and alert. ??? Take ymbs-lar-rztjhcu and prescription medicines only as told by your health care provider. ??? If you smoke, do not smoke without supervision. ??? Keep all follow-up visits as told by your health care provider. This is important. Contact a health care provider if: ??? You keep feeling nauseous or you keep vomiting. ??? You feel light-headed. ??? You develop a rash. ??? You have a fever. Get help right away if: ??? You have trouble breathing. This information is not intended to replace advice given to you by your health care provider. Make sure you discuss any questions you have with your health care provider. Document Released: 06/18/2014 Document Revised: 01/30/2017 Document Reviewed: 12/17/2016 [employer] Interactive Patient Education ?? 2019 [employer]. Radial Site Care Introduction Refer to this sheet in the next few weeks. These instructions provide you with information about caring for yourself after your procedure. Your health care provider may also give you more specific instructions. Your treatment has been planned according to current medical practices, but problems sometimes occur. Call your health care provider if you have any problems or questions after your procedure. What can I expect after the procedure? After your procedure, it is typical to have the following: ??? Bruising at the radial site that usually fades within 1???2 weeks. ??? Blood collecting in the tissue (hematoma) that may be painful to the touch. It should usually decrease in size and tenderness within 1???2 weeks. Follow these instructions at home: ??? Take medicines only as directed by your health care provider. ??? You may shower 24???48 hours after the procedure or as directed by your health care provider. Remove the bandage (dressing) and gently wash the site with plain soap and water. Pat the area dry with a clean towel. Do not rub the site, because this may cause bleeding. ??? Do nottake baths, swim, or use a hot tub until your health care provider approves. ??? Check your insertion site every day for redness, swelling, or drainage. ??? Do notapply powder or lotion to the site. ??? Do notflex or bend the affected arm for 24 hours or as directed by your health care provider. ??? Do notpush or pull heavy objects with the affected arm for 24 hours or as directed by your health care provider. ??? Do notlift over 10 lb (4.5 kg) for 5 days after your procedure or as directed by your health care provider. ??? Ask your health care provider when it is okay to: ? Return to work or school. ? Resume usual physical activities or sports. ? Resume sexual activity. ??? Do notdrive home if you are discharged the same day as the procedure. Have someone else drive you. ??? You may drive 24 hours after the procedure unless otherwise instructed by your health care provider. ??? Do notoperate machinery or power tools for 24 hours after the procedure. ??? If your procedure was done as an outpatient procedure, which means that you went home the same day as your procedure, a responsible adult should be with you for the first 24 hours after you arrive home. ??? Keep all follow-up visits as directed by your health care provider. This is important. Contact a health care provider if: ??? You have a fever. ??? You have chills. ??? You have increased bleeding from the radial site. Hold pressure on the site. Get help right away if: ??? You have unusual pain at the radial site. ??? You have redness, warmth, or swelling at the radial site. ??? You have drainage (other than a small amount of blood on the dressing) from the radial site. ??? The radial site is bleeding, and the bleeding does not stop after 30 minutes of holding steady pressure on the site. ??? Your arm or hand becomes pale, cool, tingly, or numb. This information is not intended to replace advice given to you by your health care provider. Make sure you discuss any questions you have with your health care provider. Document Released: 09/30/2011 Document Revised: 02/02/2017 Document Reviewed: 03/16/2015 ?? 2017 [employer] Heart-Healthy Eating Plan Heart-healthy meal planning includes: ??? Limiting unhealthy fats. ??? Increasing healthy fats. ??? Making other small dietary changes. You may need to talk with your doctor or a diet specialist (dietitian) to create an eating plan that is right for you. What types of fat should I choose? Choose healthy fats. These include olive oil and canola oil, flaxseeds, walnuts, almonds, and seeds. ??? Eat more omega-3 fats. These include salmon, mackerel, sardines, tuna, flaxseed oil, and ground flaxseeds. Try to eat fish at least twice each week. ??? Limit saturated fats. ? Saturated fats are often found in animal products, such as meats, butter, and cream. ? Plant sources of saturated fats include palm oil, palm kernel oil, and coconut oil. ??? Avoid foods with partially hydrogenated oils in them. These include stick margarine, some tub margarines, cookies, crackers, and other baked goods. These contain trans fats. What general guidelines do I need to follow? Check food labels carefully. Identify foods with trans fats or high amounts of saturated fat. ??? Fill one half of your plate with vegetables and green salads. Eat 4???5 servings of vegetables per day. A serving of vegetables is: ? 1 cup of raw leafy vegetables. ? ?? cup of raw or cooked cut-up vegetables. ? ?? cup of vegetable juice. ??? Fill one fourth of your plate with whole grains. Look for the word whole as the first word in the ingredient list. ??? Fill one fourth of your plate with lean protein foods. ??? Eat 4???5 servings of fruit per day. A serving of fruit is: ? One medium whole fruit. ? ?? cup of dried fruit. ? ?? cup of fresh, frozen, or canned fruit. ? ?? cup of 100% fruit juice. ??? Eat more foods that contain soluble fiber. These include apples, broccoli, carrots, beans, peas, and barley. Try to get 20???30 g of fiber per day. ??? Eat more home-cooked food. Eat less restaurant, buffet, and fast food. ??? Limit or avoid alcohol. ??? Limit foods high in starch and sugar. ??? Avoid fried foods. ??? Avoid frying your food. Try baking, boiling, grilling, or broiling it instead. You can also reduce fat by: ? Removing the skin from poultry. ? Removing all visible fats from meats. ? Skimming the fat off of stews, soups, and gravies before serving them. ? Steaming vegetables in water or broth. ??? Lose weight if you are overweight. ??? Eat 4???5 servings of nuts, legumes, and seeds per week: ? One serving of dried beans or legumes equals ?? cup after being cooked. ? One serving of nuts equals 1?? ounces. ? One serving of seeds equals ?? ounce or one tablespoon. ??? You may need to keep track of how much salt or sodium you eat. This is especially true if you have high blood pressure. Talk with your doctor or dietitian to get more information. What foods can I eat? Grains Breads, including Algerian, white, amalia, wheat, raisin, rye, oatmeal, and Hungarian. Tortillas that are neither fried nor made with lard or trans fat. Low-fat rolls, including hotdog and hamburger buns and Malian muffins. Biscuits. Muffins. Waffles. Pancakes. Light popcorn. Whole-grain cereals. Flatbread. Linn toast. Pretzels. Breadsticks. Rusks. Low-fat snacks. Low-fat crackers, including oyster, saltine, matzo, mariusz, animal, and rye. Rice and pasta, including brown rice and pastas that are made with whole wheat. Vegetables All vegetables. Fruits All fruits, but limit coconut. Meats and Other Protein Sources Lean, well-trimmed beef, veal, pork, and dao. Chicken and turkey without skin. All fish and shellfish. Wild duck, rabbit, pheasant, and venison. Egg whites or low-cholesterol egg substitutes. Dried beans, peas, lentils, and tofu. Seeds and most nuts. Dairy Low-fat or nonfat cheeses, including ricotta, string, and mozzarella. Skim or 1% milk that is liquid, powdered, or evaporated. Buttermilk that is made with low-fat milk. Nonfat or low-fat yogurt. Beverages Mineral water. Diet carbonated beverages. Sweets and Desserts Sherbets and fruit ices. Honey, jam, marmalade, jelly, and syrups. Meringues and gelatins. Pure sugar candy, such as hard candy, jelly beans, gumdrops, mints, marshmallows, and small amounts of dark chocolate. Neto food cake. Eat all sweets and desserts in moderation. Fats and Oils Nonhydrogenated (trans-free) margarines. Vegetable oils, including soybean, sesame, sunflower, olive, peanut, safflower, corn, canola, and cottonseed. Salad dressings or mayonnaise made with a vegetable oil. Limit added fats and oils that you use for cooking, baking, salads, and as spreads. Other Os[place] powder. Coffee and tea. All seasonings and condiments. The items listed above may not be a complete list of recommended foods or beverages. Contact your dietitian for more options. What foods are not recommended? Grains Breads that are made with saturated or trans fats, oils, or whole milk. Croissants. Butter rolls. Cheese breads. Sweet rolls. Donuts. Buttered popcorn. Pa mein noodles. High-fat crackers, such as cheese or butter crackers. Meats and Other Protein Sources Fatty meats, such as hotdogs, short ribs, sausage, spareribs, krishnamurthy, rib eye roast or steak, and mutton. High-fat deli meats, such as salami and bologna. Caviar. Domestic duck and goose. Organ meats, such as kidney, liver, sweetbreads, and heart. Dairy Cream, sour cream, cream cheese, and creamed cottage cheese. Whole-milk cheeses, including blue (silvestre), [place] David, Brie, Eric, Ivorian, Havarti, Cymro, cheddar, Camembert, and [place]. Whole or 2% milk that is liquid, evaporated, or condensed. Whole buttermilk. Cream sauce or high-fat cheese sauce. Yogurt that is made from whole milk. Beverages Regular sodas and juice drinks with added sugar. Sweets and Desserts Frosting. Pudding. Cookies. Cakes other than neto food cake. Candy that has milk chocolate or white chocolate, hydrogenated fat, butter, coconut, or unknown ingredients. Buttered syrups. Full-fat ice cream or ice cream drinks. Fats and Oils Gravy that has suet, meat fat, or shortening. Osage butter, hydrogenated oils, palm oil, coconut oil, palm kernel oil. These can often be found in baked products, candy, fried foods, nondairy creamers, and whipped toppings. Solid fats and shortenings, including krishnamurthy fat, salt pork, lard, and butter. Nondairy cream substitutes, such as coffee creamers and sour cream substitutes. Salad dressings that are made of unknown oils, cheese, or sour cream. The items listed above may not be a complete list of foods and beverages to avoid. Contact your dietitian for more information. This information is not intended to replace advice given to you by your health care provider. Make sure you discuss any questions you have with your health care provider. Document Released: 02/26/2013 Document Revised: 02/02/2017 Document Reviewed: 02/19/2015 [employer] Interactive Patient Education ?? 2019 [employer] Angiogram, Care After This sheet gives you information about how to care for yourself after your procedure. Your health care provider may also give you more specific instructions. If you have problems or questions, contact your health care provider. What can I expect after the procedure? After the procedure, it is common to have bruising and tenderness at the catheter insertion area. Follow these instructions at home: Insertion site care ??? Follow instructions from your health care provider about how to take care of your insertion site. Make sure you: ? Wash your hands with soap and water before you change your bandage (dressing). If soap and water are not available, use hand poly packer and heat sealer. ? Change your dressing as told by your health care provider. ? Leave stitches (sutures), skin glue, or adhesive strips in place. These skin closures may need to stay in place for 2 weeks or longer. If adhesive strip edges start to loosen and curl up, you may trim the loose edges. Do not remove adhesive strips completely unless your health care provider tells you to do that. ??? Do not take baths, swim, or use a hot tub until your health care provider approves. ??? You may shower 24???48 hours after the procedure or as told by your health care provider. ? Gently wash the site with plain soap and water. ? Pat the area dry with a clean towel. ? Do not rub the site. This may cause bleeding. ??? Do not apply powder or lotion to the site. Keep the site clean and dry. ??? Check your insertion site every day for signs of infection. Check for: ? Redness, swelling, or pain. ? Fluid or blood. ? Warmth. ? Pus or a bad smell. Activity ??? Rest as told by your health care provider, usually for 1???2 days. ??? Do not lift anything that is heavier than 10 lbs. (4.5 kg) or as told by your health care provider. ??? Do not drive for 24 hours if you were given a medicine to help you relax (sedative). ??? Do not drive or use heavy machinery while taking prescription pain medicine. General instructions ??? Return to your normal activities as told by your health care provider, usually in about a week. Ask your health care provider what activities are safe for you. ??? If the catheter site starts bleeding, lie flat and put pressure on the site. If the bleeding does not stop, get help right away. This is a medical emergency. ??? Drink enough fluid to keep your urine clear or pale yellow. This helps flush the contrast dye from your body. ??? Take wztj-ecg-hcjelce and prescription medicines only as told by your health care provider. ??? Keep all follow-up visits as told by your health care provider. This is important. Contact a health care provider if: ??? You have a fever or chills. ??? You have redness, swelling, or pain around your insertion site. ??? You have fluid or blood coming from your insertion site. ??? The insertion site feels warm to the touch. ??? You have pus or a bad smell coming from your insertion site. ??? You have bruising around the insertion site. ??? You notice blood collecting in the tissue around the catheter site (hematoma). The hematoma may be painful to the touch. Get help right away if: ??? You have severe pain at the catheter insertion area. ??? The catheter insertion area swells very fast. ??? The catheter insertion area is bleeding, and the bleeding does not stop when you hold steady pressure on the area. ??? The area near or just beyond the catheter insertion site becomes pale, cool, tingly, or numb. These symptoms may represent a serious problem that is an emergency. Do not wait to see if the symptoms will go away. Get medical help right away. Call your local emergency services (911 in the [place] Do not drive yourself to the hospital. Summary ??? After the procedure, it is common to have bruising and tenderness at the catheter insertion area. ??? After the procedure, it is important to rest and drink plenty of fluids. ??? Do not take baths, swim, or use a hot tub until your health care provider says it is okay to do so. You may shower 24???48 hours after the procedure or as told by your health care provider. ??? If the catheter site starts bleeding, lie flat and put pressure on the site. If the bleeding does not stop, get help right away. This is a medical emergency. This information is not intended to replace advice given to you by your health care provider. Make sure you discuss any questions you have with your health care provider. Document Released: 03/16/2006 Document Revised: 08/02/2017 Document Reviewed: 08/02/2017 [employer] Interactive Patient Education ?? 2019 [employer] Emergency Awareness and Preventative Care STROKE is an EMERGENCY Every Minute Counts Act FAST and Check for these signs: FACE Does the face look uneven? ARM Does one arm drift down? SPEECH Does their speech sound strange? TIME Call at any sign of stroke Stroke Risk Factors Atrial Fibrillation (irregular heartbeat) Diabetes Family history of stroke Heart Disease Heavy alcohol use High Blood Pressure High Cholesterol Physical inactivity and obesity Smoking Cigarette Smoking The facts are clear, cigarette smoking will shorten your life. Smoking can cause many illnesses along the way. As a healthcare provider, we recommend that you stop smoking. Assistance with quitting is available by contacting 4-789-VVQFNOW. This is a free resource providing counseling, support, and referral. Or you may contact your personal physician. [place] Suicide Prevention Lifeline: The National Suicide Prevention Lifeline is a national network of local crisis centers that provides free and confidential emotional support to people in suicidal crisis or emotional distress 24 hours a day, 7 days a week. Don't Wait! Stop a Heart Attack Before it Starts What is a heart attack? A heart attack is damage or to a part of the heart from severely decreased or lack of blood flow to the heart. Over time, arteries can become narrow from the buildup of fat and cholesterol, which is called plaque. The plaque can rupture causing a blood clot to form. When the blood clot forms, the artery can become severely narrowed or completely blocked, causing a heart attack. Heart attack is the leading cause of in the [place]. 85% of muscle damage occurs within the first 2 hours. Delay in the recognition of heart attack symptoms increases the chances of . Know the early symptoms of a heart attack: Nausea Feeling of fullness in chest Jaw Pain Pain that travels down one or both arms Fatigue/being tired Anxiety Back Pain Chest pressure, squeezing, or discomfort Shortness of breath Sweating, or a cold sweat Feeling of impending doom There are unusual signs of a heart attack, too! Women, the elderly, and diabetics may present with atypical symptoms: Fainting/dizziness Weakness Confusion Risk Factors for a Heart Attack Some heart disease risk factors, such as age and family history, cannot be changed. Others, like smoking and lack of exercise, can be changed. Smoking High Cholesterol High Blood Pressure Family History Obesity Age Gender (Males are at higher risk) Lack of Exercise Diabetes Diet Stress Excessive Alcohol Intake If you or someone you know is experiencing the signs and symptoms of a heart attack, DON???T DELAY. Call immediately and seek help. If someone collapses, perform CPR! Do not attempt to drive if you are having symptoms of heart attack. Hands-Only CPR Why Hands-Only CPR? Hands-Only CPR has been shown to be as effective as conventional CPR for cardiac arrests that occur outside of a hospital. Survival depends on immediately receiving CPR from someone nearby. How do you perform Hands-Only CPR? There are two easy steps: Call if you see a teen or adult collapse Push hard and fast in the center of the chest at a beat of 100 beats per minute. Save a life! 4 WAYS TO GET AHEAD OF SEPSIS SEPSIS is a MEDICAL EMERGENCY. Time matters! Infections put you and your family at risk for a life-threatening condition called sepsis. Sepsis is the body's extreme response to an infection. It is life-threatening, and without timely treatment, sepsis can rapidly lead to tissue damage, organ failure, and . Sepsis happens when an infection you already have-in your skin, lungs, urinary tract or somewhere else-triggers a chain reaction throughout your body. 1 PREVENT INFECTIONS Take good care of chronic conditions. Talk to your doctor about getting the recommended vaccines. 2 PRACTICE GOOD HYGIENE Wash your hands frequently. Keep cuts or open sores clean and covered until they are healed. 3 KNOW THE SYMPTOMS Confusion or disorientation Shortness of breath High heart rate Fever, shivering, or feeling very cold Extreme pain or discomfort Clammy or sweaty skin 4 ACT FAST Get medical care IMMEDIATELY if you suspect sepsis or if you have an infection that is not getting better or is getting worse. To learn more about sepsis and how to prevent infections, visit www.cdc.gov/sepsis. Patient Portal Reminder: Be sure to sign up for the [facility] patient portal, which gives you 03/04 access to your medical information ??? including these discharge instructions ??? using your computer, smartphone, or tablet. Just go to [employer] to get started. Questions? Call . Test Results Laboratory or Other Results This Visit (last charted value for your 01/28/2019 visit) Hematology 01/28/19 10:20:00 Platelet Count: 315 K/uL -- Normal range between ( 163 and 369 ) Patient Name:MAO MAURICIO I have received and understand this information and was given the opportunity to ask questions. Patient/Hospital Staff Pharmacist Name: Patient/Hospital Staff Pharmacist Signature: Relationship to Patient: Clinician/Hospital Hospital Staff Pharmacist Signature: Date: documented in this encounter Plan of Treatment Not on file documented as of this encounter Visit Diagnoses Not on filedocumented in this encounter
--- OUTSIDE RECORDS SUMMARY | 2025-05-17 09:37 | XMS_ITS | Encounter Summary ---
Author Organization [employer] ([place], [place], [place]) Address [address] [place] [address] Care Team Providers Care External Grinder Name Role Phone Unavailable Primary Care Provider Unavailabl e Encounter Details Date Type Department Care Team (Late st Contact Info) Description 01/28/2019 Transcribed Document [facility] [place] [facility] [place] [address] ProviderDustin MD [address] [place] [address] Social History Tobacco Use Types Packs/Day Years Used Date Smoking Tobacco: Never Assessed Sex and Gender Information Value Date Recorded Sex Assigned at Not on file Legal Sex Male 6:34 PM CDT Gender Identity Not on file Sexual Orientation Not on file documented as of this encounter Miscellaneous Notes * Cerner Conversion Note - Dustin Ortega MD - 01/28/2019 11:53 AM CDT DATE OF PROCEDURE: 01/28/2019 LEFT HEART CATHETERIZATION REPORT INDICATION: Dyspnea, anteroapical hypokinesia by exercise stress echo. REFERRING PHYSICIAN: 1. Dr. Justine Pickard 2. Tony Perez 3. Mely Griffin PROCEDURES: Standard left heart catheterization. TECHNIQUE: A 5/6-Turkmen sheath placed in the right radial artery. TIG 4.5 diagnostic catheter was used for selective angiography of left and right coronary arteries and obtaining pressures in the left ventricle. Left ventriculogram was not performed. Following diagnostic catheterization, the radial artery sheath was removed and the access site successfully compressed using a TR band. No complications. 5 mg verapamil 3000 units of heparin were administered via the radial artery sheath. HEMODYNAMICS: Left ventricle 100/15 mmHg, aorta 100/55 mmHg. DIAGNOSES: 1. Mild coronary artery atherosclerosis. 2. Mildly elevated left ventricular filling pressure without gradient across the aortic valve. CORONARY ANATOMY: 1. Left main trunk: Minimally diseased. 2. LAD: Moderate caliber vessel, which gives rise to several small caliber diagonal branches before extending beyond the apex. Mild atherosclerosis of 30% narrowing present in the mid LAD. 3. Circumflex artery: Moderate caliber vessel, which gives rise to a small caliber high lateral branch are tiny high lateral branches, small caliber bifurcating posterolateral branch. Mild atherosclerosis of 20%-30% narrowing present in the circumflex artery. 4. Right coronary artery: Dominant vessel. Moderate caliber vessel, which gives rise to a small caliber posterior descending artery, small caliber posterolateral branch. There is mild atherosclerosis of 40% narrowing present in the mid right coronary artery. 5. Left ventricle: Normal left ventricular filling pressure without gradient across the aortic valve. IMPRESSION: Angiographically, the patient has mild coronary artery atherosclerosis. There is no indication for revascularization. Risk factor modification medical management is recommended. Tony Mckay M.D. Dict: 01/28/2019 11:53:09 Trans: 01/28/2019 15:50:34 CC1: Tony Mckay M.D. CC2: Dr. Stephanie Pickard CC3: Tony Perez CC4: Mely Griffin APRN documented in this encounter Plan of Treatment Not on file documented as of this encounter Visit Diagnoses Not on filedocumented in this encounter
--- OUTSIDE RECORDS SUMMARY | 2025-05-17 09:37 | XMS_ITS | Referral Summary ---
Author Organization [employer] ([place], [place], [place], [place]) Address [address] [place] [address] Care Team Providers Care Field Gauger Name Role Phone Unavailable Primary Care Provider Unavailabl e Social History Tobacco Use Types Packs/Day Years Used Date Smoking Tobacco: Never Assessed Sex and Gender Information Value Date Recorded Sex Assigned at Not on file Legal Sex Male 6:34 PM CDT Gender Identity Not on file Sexual Orientation Not on file Plan of Treatment Not on file
--- OUTSIDE RECORDS SUMMARY | 2025-05-17 09:37 | XMS_ITS | Clinical Summary ---
Author Organization [employer] ([place], [place], [place], [place]) Address [address] [place] [address] Care Team Providers Care Studio Engineer Name Role Phone Unavailable Primary Care Provider [...]
--- OUTSIDE RECORDS SUMMARY | 2025-05-17 09:37 | XMS_ITS | Encounter Summary ---
Author Organization [facility] Address [address] [place] [address] Care Team Providers Care Freight Delivery Driver Name Role Phone Zack Bartholomew MD Primary Care Provider [phone] Encounter Details Date Type Department Care Team (Late st Contact Info) Description 04/29/2025 Telephone [facility] DEPT [address] [place] [address] Batsheva Smith Social History Tobacco Use Types Packs/Day Years [...] as of this encounter Miscellaneous Notes * Telephone Encounter - Batsheva Smith - 04/29/2025 11:22 AM EDT Patient Call Reason for call: Upcoming Outcome of call: Broadcast call made Additional Notes: Automated Message Reminder documented in this encounter Plan of Treatment Not on file documented as of this encounter Visit Diagnoses Not on filedocumented in this encounter Care Teams Freight Delivery Driver Relationship Specialty Start Date End Date Zack Bartholomew MD [address] [place] [facility] [address] [facility] [address] [place] [address] PCP - General Adolescent Medicine 08/20/16 documented as of this encounter
--- OUTSIDE RECORDS SUMMARY | 2025-05-17 09:37 | XMS_ITS | Encounter Summary ---
Author Organization [employer] ([place], [place], [place], [place]) Address [address] [place] [address] Care Team Providers Care Ammonia Technician Name Role Phone Unavailable Primary Care Provider Unavailabl e Encounter Details Date Type Department Care Team (Late st Contact Info) Description 01/28/2019 Transcribed Document [facility] [place] Family Medicine [facility] [place] [address] ProviderDustin MD [address] [place] [address] Social History Tobacco Use Types Packs/Day Years Used Date Smoking Tobacco: Never Assessed Sex and Gender Information Value Date Recorded Sex Assigned at Not on file Legal Sex Male 6:34 PM CDT Gender Identity Not on file Sexual Orientation Not on file documented as of this encounter Miscellaneous Notes * Cerner Conversion Note - Dustin ProviderMD - 01/28/2019 2:39 PM CDT Nursing Discharge Summary Entered On: 01/28/2019 14:40 EDT Performed On: 01/28/2019 14:39 EDT by VERA FLOYD, senior manufacturing technician Documentation Discharge Date/Time : 01/28/2019 14:30 EDT VERA FLOYD, RN - 01/28/2019 14:40 EDT Patient Disposition, General : Elopement Discharge To : Home with ambulatory/outpatient follow-up Mode Of Departure, General Discharge : Private vehicle Accompanied By, Discharge : Spouse IV Discontinued : Yes Medications Given to Patient : Yes Personal Belongings With Patient : Yes Prescriptions Given to Patient : No Discharge Instructions Reviewed With, Opportunity For Questions Given : Patient, Spouse Patient Education Completed : Yes Teaching Method : Demonstration, Explanation Teaching Evaluation : Returns demonstration, Verbalizes understanding VERA FLOYD, RN - 01/28/2019 14:39 EDT Electronically signed by Jonny [facility] Conversion Stewarding Supervisor Cerner at 12/30/2022 4:10 PM CDT documented in this encounter Plan of Treatment Not on file documented as of this encounter Visit Diagnoses Not on filedocumented in this encounter
--- OUTSIDE RECORDS SUMMARY | 2025-05-17 09:37 | XMS_ITS | Patient Health Record ---
Author Organization [facility] Address [address] [place] [address] [place] [address] Care Team Providers Care Gutter Installer Name Role Phone Zack Bartholomew Primary Care Provider Migration, Provider Unavailable Unavailable Allergies No Known Allergies Medications Medication SIG (Take, Route, Frequency, Duration) Notes Start Date End Date Status Breo Ellipta 100 MCG-25 MCG/INH 1 PUFF(S) INHALED ONCE A DAY; Duration: 30 DAY(S) *Please review and pick correct strength-formulatio n from [email or web address] options. If intended option is not shown, discontinue and re-order from Quick Search* 09/14/2021 Active LOTRISONE 0.05%-1% 1 ARIEL APPLIED TOPICALLY 2 TIMES A DAY; Duration: 14 DAY(S) *Please review for potential replacement for e-prescription and drug interaction check* Active Tamsulosin HCl 0.4 MG 1 cap(s) orally once a day; Duration: 90 days Active Antivert 50 MG 1 TAB(S) ORALLY 3 TIMES A DAY NEEDED; Duration: 30 DAYS *Please review and pick correct strength-formulatio n from [employer] options. If intended option is not shown, [...] e-prescription and drug interaction check* 09/14/2021 Active Problems Problem Type SNOMED Code ICD Code Onset Dates Problem Status W/U Status Risk Notes Problem Primary insomnia (2459267) Primary insomnia (F51.01) Active confirmed Problem Impacted cerumen (71181264) Impacted cerumen, left ear (H61.22) Active confirmed Problem Tobacco use (703536495) Tobacco use (Z72.0) Active confirmed Problem Nicotine dependence (58291698) Personal history of nicotine dependence (Z87.891) Active confirmed Problem Hyperlipidaemia (49939403) Hyperlipidemia LDL goal <100 (E78.5) Active confirmed Problem Non-suppurative otitis media (254474725) Middle ear effusion, left (H65.92) Active confirmed Problem Lower urinary tract symptoms due to benign prostatic hypertrophy (08658730190697) Benign prostatic hyperplasia with lower urinary tract symptoms (N40.1) Active confirmed Problem Benign paroxysmal positional vertigo (811916141) Vertigo, benign positional, unspecified laterality (H81.10) Active confirmed Problem History of asbestos exposure (213605616) Asbestos exposure (Z77.090) Active confirmed Problem Carcinoembryonic antigen above reference range (244787237) Elevated CEA (R97.0) Active confirmed Problem 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) Active confirmed Problem Chronic obstructive pulmonary disease (08067338) Exacerbation of chronic bronchiolitis (J44.9) Active confirmed Encounters Encounter Location Date Provider Diagnosis [facility] [address] [place] [address] 12/14/2024 Provider Migration Plan Of Treatment Pending Test Test Name Order Date X ray : Chest 10/13/2017 CT Scan : Chest, Without Contrast 2017 MRI : Shoulder, Right 12/26/2017 Rapid Strep 08/04/2008 Rapid Strep 05/18/2007 Rapid Strep 12/22/2008 CT Scan : Head, with/without contrast H-CBC with AUTO DIFF 09/21/2016 H-VITAMIN B12 09/21/2016 H-CMP 09/21/2016 H-CMP 10/13/2017 H-LIPID PANEL 10/13/2017 H-LIPID PANEL 09/21/2016 H-LIPID PANEL 09/19/2014 H-TSH 09/21/2016 CT Scan : Hip, Right 08/04/2008 Pulmonary Function Test- Complete 2019 M-Complete Blood Count Man Dif M-Miscellaneous Test 12/24/2019 M-Prostate Specific Ag Screen 01/19/2021 M-Vitamin B12 01/19/2021 M-Vitamin D 25 Hydroxy 01/19/2021 M-IgG, Subclasses(1-4) 01/19/2021 Insurance Providers Payer Name Payer Address Payer Phone Subscriber Number Group Number Insured Name Patient Relationship to Insured Coverage Start Date Coverage End Date [facility] [address] [place] [address] [id number] Mao Jaimes Self - patient is the insured Medications Administered Medication Instructions Date of Administration Dosage Notes Triamcinolone Acetonide 40mg Injection 10/25/2018 1 mL Kenalog 09/23/2013 1 mL Kenalog 04/24/2015 1 mL Kenalog 09/21/2016 1 mL Medical (General) History Medical History History ICD Code smoking Mild CAD seen on [facility] 11/2018 at [facility] Surgical History Surgery Date(Month/Year) tonsillectomy right hand; injury colonoscopy 12/27 with hyperplatic rectal polyp lung biopsy 2019 Hospitalization History Reason Date(Month/Year) above infection 2008
--- OUTSIDE RECORDS SUMMARY | 2025-05-17 09:37 | XMS_ITS | Encounter Summary ---
Author Organization [employer] ([place], [place], [place], [place]) Address [address] [place] [address] Care Team Providers Care Chart Reader Name Role Phone Unavailable Primary Care Provider Unavailabl e Encounter Details Date Type Department Care Team (Late st Contact Info) Description 01/28/[address] [facility] [place] Family Medicine [address] [place] [address] ProviderDustin MD [address] [place] [address] Social History Tobacco Use Types Packs/Day Years Used Date Smoking Tobacco: Never Assessed Sex and Gender Information Value Date Recorded Sex Assigned at Not on file Legal Sex Male 6:34 PM CDT Gender Identity Not on file Sexual Orientation Not on file documented as of this encounter Miscellaneous Notes * Cerner Conversion Note - Dustin Ortega MD - 01/28/2019 12:52 PM CDT Patient Education Materials Follows: Moderate Conscious Sedation, Adult, Care After These [...] you are awake and alert. ??? Take vvmz-noo-sgwedcl and prescription medicines only as told by [...] 06/18/2014 Document Revised: 01/30/2017 Document Reviewed: 12/17/2016 [employer] Patient Education ? 2019 [employer] Radial Site Care Introduction Refer to this [...] the radial site that usually fades within 1?2 weeks. ??? Blood collecting in the tissue (hematoma) that may be painful to the touch. It should usually decrease in size and tenderness within 1?2 weeks. Follow these instructions at home: ??? Take medicines only as directed by your health care provider. ??? You may shower 24?48 hours after the procedure or as directed [...] health care provider when it is okay to:? Return to work or school. ? Resume [...] 09/30/2011 Document Revised: 02/02/2017 Document Reviewed: 03/16/2015 ? 2017 Elsevier Heart-Healthy Eating Plan Heart-healthy meal planning includes: [...] plate with vegetables and green salads. Eat 4?5 servings of vegetables per day. A serving of vegetables is: ? 1 cup of raw leafy vegetables. ? ? cup of raw or cooked cut-up vegetables. ? ? cup of vegetable juice. ??? Fill one fourth of your plate with whole grains. Look for the word whole as the first word in the ingredient list. ??? Fill one fourth of your plate with lean protein foods. ??? Eat 4?5 servings of fruit per day. A serving of fruit is: ? One medium whole fruit. ? ? cup of dried fruit. ? ? cup of fresh, frozen, or canned fruit. ? ? cup of 100% fruit juice. ??? Eat more foods that contain soluble fiber. These include apples, broccoli, carrots, beans, peas, and barley. Try to get 20?30 g of fiber per day. ??? Eat [...] weight if you are overweight. ??? Eat 4?5 servings of nuts, legumes, and seeds per week: ? One serving of dried beans or legumes equals ? cup after being cooked. ? One serving of nuts equals 1? ounces. ? One serving of seeds equals ? ounce or one tablespoon. ??? You may need to keep track of how much salt or sodium you eat. This is especially true if you have high blood pressure. Talk with your doctor or dietitian to get more information. What foods can I eat? Grains Breads, including Turkmen, white, amalia, wheat, raisin, rye, oatmeal, and Indonesian. Tortillas that are neither fried nor made with lard or trans fat. Low-fat rolls, including hotdog and hamburger buns and Israeli muffins. Biscuits. Muffins. Waffles. Pancakes. Light popcorn. [...] cooking, baking, salads, and as spreads. Other Witt powder. Coffee and tea. All seasonings and [...] cottage cheese. Whole-milk cheeses, including blue (silvestre), Johnston David, Brie, Eric, Emirati, Havarti, Cameroonian, cheddar, Camembert, and [place]. Whole or 2% milk that is liquid, [...] that has suet, meat fat, or shortening. Witt butter, hydrogenated oils, palm oil, coconut oil, [...] 02/26/2013 Document Revised: 02/02/2017 Document Reviewed: 02/19/2015 [employer] Patient Education ? 2019 [employer] Angiogram, Care After This sheet gives [...] and water are not available, use hand blind lacer. ? Change your dressing as told by [...] care provider approves. ??? You may shower 24?48 hours after the procedure or as told [...] by your health care provider, usually for 1?2 days. ??? Do not lift anything that [...] contrast dye from your body. ??? Take hacm-iph-yhaepgc and prescription medicines only as told by [...] okay to do so. You may shower 24?48 hours after the procedure or as told [...] Document Reviewed: 08/02/2017 Elsevier Interactive Patient Education ? 2019 [employer] documented in this encounter Plan of Treatment Not on file documented as of this encounter Visit Diagnoses Not on filedocumented in this encounter
--- OUTSIDE RECORDS SUMMARY | 2025-05-17 09:37 | XMS_ITS | Encounter Summary ---
Author Organization [employer] ([place], [place], [place], [place]) Address [address] [place] [address] Care Team Providers Care Patient Coordinator Name Role Phone Unavailable Primary Care Provider Unavailabl e Encounter Details Date Type Department Care Team (Late st Contact Info) Description 01/28/2019 Transcribed Document [facility] [place] Family Medicine [facility] [address] ProviderDustin MD [facility] [address] Social History Tobacco Use Types Packs/Day Years Used Date Smoking Tobacco: Never Assessed Sex and Gender Information Value Date Recorded Sex Assigned at Not on file Legal Sex Male 6:34 PM CDT Gender Identity Not on file Sexual Orientation Not on file documented as of this encounter Miscellaneous Notes * Cerner Conversion Note - Historical ProviderMD - 01/28/2019 2:40 PM CDT Event Note Entered On: 01/28/2019 14:40 EDT Performed On: 01/28/2019 14:40 EDT by VERA FLOYD, RN Event Note Event Date/Time : 01/28/2019 14:30 EDT Description of Event : pt discharged home in stable condition, pt verbalized understanding of discharge teaching VERA FLOYD, RN - 01/28/2019 14:40 EDT Electronically signed by Jonny [facility] Conversion Agricultural Equipment Sales Manager Cerner at 12/30/2022 3:50 PM CDT documented in this encounter Plan of Treatment Not on file documented as of this encounter Visit Diagnoses Not on filedocumented in this encounter
--- OUTSIDE RECORDS SUMMARY | 2025-05-17 09:37 | XMS_ITS | Encounter Summary ---
Author Organization [employer] ([place], [place], [place], [place]) Address [address] [place] [address] Care Team Providers Care Lead Principal Technical Architect Name Role Phone Unavailable Primary Care Provider Unavailabl e Encounter Details Date Type Department Care Team (Late st Contact Info) Description 01/28/2019 Transcribed Document [facility] [place] [facility] [place] [address] ProviderDustin MD [address] [place] [id number] [id number] Social History Tobacco Use Types Packs/Day Years Used Date Smoking Tobacco: Never Assessed Sex and Gender Information Value Date Recorded Sex Assigned at Not on file Legal Sex Male 6:34 PM CDT Gender Identity Not on file Sexual Orientation Not on file documented as of this encounter Miscellaneous Notes * Cerner Conversion Note - Dustin Ortega MD - 01/28/2019 9:30 AM CDT Patient: MAO MAURICIO Age: 48 years Sex: Male : 1970 Associated Diagnoses: None Author: MARY ANN TILLMAN MD-CAR Basic Information PCP: SABINE MADISON (REF)MD Cardiology: Justine Pickard MD Chief Complaint dyspnea History of Present Illness This is a 48 year old male with a history of dyslipidemia. He was seen by Dr Pickard in office for evaluation of progressively worsening dyspnea that has significantly decreased his activity level. He states with one flight of stairs he becomes short of breath and must stop to rest. He also has left sided chest pain at times related to activity. He is a smoker using 2 ppd x 39 years. He underwent a stress echo that was abnormal suggesting apical hypokinesis.He has been scheduled for elective cardiac cath. Review of Systems Constitutional: Negative except as documented in history of present illness. Eye: Negative except as documented in history of present illness. Ear/Nose/Mouth/Throat: Negative except as documented in history of present illness. Respiratory: Negative except as documented in history of present illness. Cardiovascular: Negative except as documented in history of present illness. Gastrointestinal: Negative except as documented in history of present illness. Genitourinary: Negative except as documented in history of present illness. Hematology/Lymphatics: Negative except as documented in history of present illness. Endocrine: Negative except as documented in history of present illness. Immunologic: Negative except as documented in history of present illness. Musculoskeletal: Negative except as documented in history of present illness. Integumentary: Negative except as documented in history of present illness. Neurologic: Negative except as documented in history of present illness. Psychiatric: Negative except as documented in history of present illness. Health Status No qualifying data available No qualifying data available Allergies: Allergic Reactions (Selected) No Known Allergies Current medications: (Selected) Inpatient Medications Ordered Normal Saline Flush: 10 mL, IV Push, Q12H Normal Saline Flush: 10 mL, IV Push, See Comment, PRN: IV Use Sodium Chloride 0.9% intravenous solution 500 mL: Titrate, IntraVENous Documented Medications Documented Lipitor: 40 mg, Oral, At Bedtime, 0 Refill(s) Metoprolol Succinate ER: 25 mg, Oral, At Bedtime, 0 Refill(s) aspirin: 81 mg, Oral, At Bedtime, 0 Refill(s) Problem list: All Problems Dyslipidemia / SNOMED CT 3002953626 / Confirmed Tobacco abuse / SNOMED CT 752529558 / Confirmed Bradycardia / SNOMED CT 34912062 / Confirmed SOB (shortness of breath) / SNOMED CT 325673228 / Confirmed Snoring / SNOMED CT 902404247 / Confirmed Dizziness / SNOMED CT 6396771694 / Confirmed At risk for sleep apnea / IMO [id number] / Confirmed Histories No education data available. Social & Psychosocial Habits No Data Available Past Medical History: Active Dyslipidemia ([id number]) Family History: Entire family history is negative. Procedure history: right thumb surgery. tonsillectomy. Social History Social & Psychosocial Habits Alcohol 01/28/2019 Alcohol Use History, Social Habits No Substance Abuse 01/28/2019 Recreational Drug Use History No Tobacco 01/28/2019 Years of Tobacco Use 38 Packs/Tins Daily 2 . Physical Examination VS/Measurements No qualifying data available General: Alert and oriented. Eye: Pupils are equal, round and reactive to light. HENT: Normocephalic. Neck: Supple, No carotid bruit, No jugular venous distention. Respiratory: Lungs are clear to auscultation, Respirations are non-labored, Breath sounds are equal. Cardiovascular: Normal rate, Regular rhythm, No murmur, No gallop, Good pulses equal in all extremities. Gastrointestinal: Soft, Non-tender, Non-distended, Normal bowel sounds. Musculoskeletal: Normal range of motion, Normal strength. Integumentary: Warm, Dry, [place]. Neurologic: Alert, Oriented. Psychiatric: Cooperative. Review / Management No qualifying data available Cardiac Markers (Current Encounter/Past 24 Hours) No Cardiac Marker Results Found (Past 24 Hours) Blood Gases (Current Encounter/Past 24 Hours) No Blood Gas Results Found (Past 24 Hours) No Radiology Results Found Results review: No qualifying data available. Impression and Plan IMPRESSION: * Intermittent atypical CP. FC II lifestyle limiting dyspnea ? anginal equivalent. GXT echo-anteroapical HK. * Dyslipidemia * Bradycardia * Ongoing tobacco use 2ppd x 39 years PLAN; Cardiac cath via R radial access with possible catheter based intervention. Risks, benefits, and alternative therapy discussed in detail. He has given verbal and written consent. Smoking cessation education. Addendum-Mild CAD by cath. Stop Anandarol. Smoking cessation emphasized. Non-cardiac dyspnea evaluation w/ primary MD. documented in this encounter Plan of Treatment Not on file documented as of this encounter Visit Diagnoses Not on filedocumented in this encounter
== END 2025-05-17 23:59 | disposition home or self-care (01) ==
LOC: RAD 09:36
PROVIDERS: PCP Family Medicine; Visit Provider Nurse Practitioner Family
DX: M48.8X2 Other specified spondylopathies, cervical region (principal); M43.6 Torticollis
CPT/HCPCS: 72052